=== PATIENT | female | born 2005 | race Caucasian/White ===

== ENCOUNTER 2024-07-21 17:15 | Emergency (ER) | payer BC, MEDICAID, SELFPAY ==
[2024-07-21 17:35] VITALS: BP 108/70; PULSE 97; RESP 16; TEMP 36.4; O2SAT 100
--- OUTSIDE RECORDS SUMMARY | 2024-07-21 17:54 | XMS_ITS | Patient Health Record ---
Author Organization [facility] Address [address] [facility] [place] [address] Care Team Providers Care Teaching Aide Name Role Phone Self, Self Unavailable Unavailable Sherly Quintanilla Unavailable [phone] Oswaldo Salinas Unavailable [phone] Allergies No Known Allergies Reason For Referral No Information Medications Medication SIG (Take, Route, Fr equency, Duration) Notes Start Date End Date Status Lubiprostone 24 MCG 1 capsule with food and water Orally Twice a day Active Ubrelvy 50 MG 1 tablet as needed, may take second dose at least 2 hours after first dose up to 4 tablets per day as needed Orally Once a day Active Aimovig 70 MG/ML as directed Subcutaneous Active MiraLax 17 GM/SCOOP 1 scoop mixed with 8 ounces of fluid Orally Once a day Active Dicyclomine HCl 10 MG 2 capsules Orally Three times a day Active Social History Tobacco Use: Social History Observation Description Date Details (start date - stop date) Never Smoker NA - NA Sexual History Question Answer Notes Had sex in the past 12 months (vaginal, oral, or anal)? No Have you ever had a Sexually transmitted disease ? No PRAPARE Question Answer Notes Date Completed/Updated: 04/07/2024 What is your current housing situation? I have h ousing Are you worried about losing your housing? No What is the highest level of school that you have finished? High school diploma or GED What is your current work situation? Unemployed and seeking work In the past year, have you o r any family members you live with been unable to get any of the following when it was really needed? Check all that apply I do not have problems meeting my needs Has lack of transportation k ept you from medical appointments, meetings, work or from getting things needed for daily living? No How often do you see or talk to people that you care about and feel close to? (For example: talking to friends on the phone, visiting friends or family, going to latter-day or club meetings) 1 or 2 times a week How stressed are you? Stress is when someone feels tense, nervous, anxious, or cant sleep at night because their mind is troubled A little bit In the past year have you sp ent more than 2 nights in a row in a fdc, fpc, group home center, or juvenile correctional facility? No Are you a refugee? No What country are you from? [place] Do you feel physically and e motionally safe where you currently live? Yes In the past year, have you b een afraid of your partner or ex-partner? No PRAPARE Score: 5 Tobacco Control (Standard) Question Answer Notes Tobacco use: Nonsmoker AUDIT-C (Standard) Question Answer Notes Did you have a drink contain ing alcohol in the past year? Yes How often did you have six o r more drinks on one occasion in the past year? Never (0 point) How many drinks did you have on a typical day when you were drinking in the past year? 1 or 2 drinks (0 point) How often did you have a dri nk containing alcohol in the past year? Monthly or less (1 point) Points 1 Interpretation Negative Encounters Encounter Location Date Provider Diagnosis Start [address] [place] [address] 04/07/2024 Sherly Quintanilla Assessments Encounter Date Diagnosis (ICD Code) Assessment Notes Treatment Notes Treatment Clinical Notes Section Notes 04/07/2024 completed intake and triage with the patient. set up dental appt. reviewed services and resources Plan Of Treatment No Information Insurance Providers Payer Name Payer Address Payer Phone Subscriber Number Group Number Insured Name Patient Relationship to Insured Coverage Start Date Coverage End Date [facility] Community Plan [address] [address] [place] [address] [id number] Veronica Aguilar Self - patient is the insured Medical (General) History Medical History History ICD Code lupus rheumatoid arthritis chronic migrains Surgical History Surgery Date(Month/Year) tonsillectomy and adenoidectomy
--- OUTSIDE RECORDS SUMMARY | 2024-07-21 17:54 | XMS_ITS ---
Author Organization [facility] Address [address] [facility] [place] [address] Care Team Providers Care Traffic Administrator Name Role Phone Self, Self Unavailable Unavailable Oswaldo Salinas Unavailable [phone] REASON FOR VISIT left vm Encounters Encounter Location Date Provider Diagnosis [facility] [address] [place] [address] 04/17/2024 Oswaldo Salinas Plan Of Treatment No Information Progress Notes * Kaylan MENARDOB:[birth year] (19 yo F)Acc No.[id number]:04/17/2024 Patient: Veronica AVILA Provider: Duane Salinas DMD :2005 A ge:19 Y S ex:Female Date:04/17/2024 Address:[id number] Subjective: * Chief Complaints: * 1 . Left vm. * Medical History: Objective: * Vitals: Assessment: Plan: * Treatment: * Billing Information: * Visit Code: * Procedure Codes: * Electronic signature of Sebas Salinas DMD on 07/21/2024 at 05:54 PM CDT Sign off status: Pending * Provider: Duane Salinas DMD Date: 0 04/17/2024 Generated for Bridget schwartz/Evelin/Nahid on: 0 07/21/2024 05:54 PM CDT
--- OUTSIDE RECORDS SUMMARY | 2024-07-21 17:55 | XMS_ITS ---
Author Organization [facility] Address [address] [facility] [place] [address] Care Team Providers Care Disc Inspector Name Role Phone Self, Self Unavailable Unavailable Oswaldo Salinas Unavailable [phone] REASON FOR VISIT Dental Encounters Encounter Location Date Provider Diagnosis Start [address] [place] [address] 03/31/2024 Oswaldo Salinas Plan Of Treatment No Information Progress Notes * Kaylan MENARDOB:[birth year] (19 yo F)Acc No.[id number]:03/31/2024 Patient: Veronica AVILA Provider: Duane Salinas DMD :2005 A ge:18 Y S ex:Female Date:03/31/2024 Address:[id number] Subjective: * Chief Complaints: * 1 . Dental. * Medical History: Objective: * Vitals: Assessment: Plan: * Treatment: * Billing Information: * Visit Code: * Procedure Codes: * Electronic signature of Sebas Salinas DMD on 07/21/2024 at 05:54 PM CDT Sign off status: Pending * Provider: Duane Salinas DMD Date: 06/01/2023 Generated for Bridget schwartz/Evelin/Yasmeenitting on: 07/21/2024 05:54 PM CDT
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
--- OUTSIDE RECORDS SUMMARY | 2024-07-21 17:56 | XMS_ITS | Encounter Summary ---
Author Organization [facility] Address [address] [place] [address] Care Team Providers Care Supervisor Extruding Department Name Role Phone Rosa Martin NP Primary Care Provider [phone] Lucius Sims MD Primary Care Provider + [phone] Riya Gill LPN Unavailable Unavailable Neil Simmons MD, Fannie Unavailable + [phone] Alexandria Dodson MD Primary Care Provider + [phone] Encounter Details Date Type Department Care Team (Late st Contact Info) Description 10/04/[address] [place] [address] Marce Joseph, HEAD WRESTLING COACH [address] [facility] [address] [place] [address] Social History Tobacco Use Types Packs/Day Years Used Date Smoking Tobacco: Never Smokeless Tobacco: Never Alcohol Use Standard Drinks/Week Comments No 0 (1 standard drink = 0.6 oz pur e alcohol) Comments No Sex and Gender Information Value Date Recorded Sex Assigned at Not on file Legal Sex Female 1:18 PM CDT Gender Identity Not on file Sexual Orientation Not on file documented as of this encounter Miscellaneous Notes * Telephone Encounter - Brandon Zuniga LPN - 10/04/2020 4:38 PM CDT ----- Message from Kirstin Miguel sent at 10/04/2020 4:30 PM CDT ----- Contact: PT's mom [phone] Type: Needs Medical Advice Who Called: PT's mom Symptoms (please be specific): irritable, PT stated she feels like something is wrong/ PT doesn't feel right, PT angry, agitated easily How long has patient had these symptoms: Weeks Pharmacy name and phone #: [facility] [phone] Would the patient rather a call back or a response via CanDiag? Callback Best Call Back Number: [phone] Additional Information: Needs call back CHIVO. PT was seen in office recently and PT was not heard or taking serious. Needs to call back Today, Per Mom Urgent documented in this encounter Plan of Treatment Not on file documented as of this encounter Visit Diagnoses Not on filedocumented in this encounter Additional Health Concerns Infection Onset Date Last Indicated Resolved Time Rule Out COVID-19 02/01/2021 02/01/2021 02/01/2021 10:59 AM CDT Rule Out COVID-19 08/29/2021 08/29/2021 08/29/2021 4:56 PM CDT Rule Out COVID-19 09/03/2021 09/03/2021 09/03/2021 11:34 PM CDT Rule Out COVID-19 03/10/2022 03/10/2022 03/10/2022 2:27 PM KNOCKER OFF Rule Out COVID-19 05/24/2022 05/24/2022 06/03/2022 8:58 PM KNOCKER OFF Rule Out COVID-19 01/05/2024 01/05/2024 01/05/2024 11:19 AM CDT documented as of this encounter Care Teams Supervisor Extruding Department Relationship Specialty Start Date End Date Rosa Martin NP [address] [place] [address] PCP - General Pediatrics 08/31/21 10/31/21 Lucius Sims MD [address] [place] [address] PCP - General Family Medicine 11/01/21 05/12/24 Alexandria Dodson MD [address] [place] [address] PCP - General Family Medicine 05/13/24 Riya Gill LPN Elevator Erector Helper 04/13/22 05/12/24 Fannie Trejo MD [address] [place] [address] Consulting Physician Obstetrics and Gynecology 01/21/24 documented as of this encounter
--- OUTSIDE RECORDS SUMMARY | 2024-07-21 17:56 | XMS_ITS | Clinical Summary ---
Author Organization [employer] and Its Subsidiaries and Affiliates Address [address] [place] [address] Care Team Providers Care Regional Refrigerated Cdl Truck Driver Name Role Phone Neil Simmons MD, Fannie Unavailable +- [phone] Alexandria Dodson MD Primary Care Provider [phone] Allergies No known active allergies Medications erenumab-aooe (AIMOVIG AUTOINJECTOR) 70 mg/mL autoinjectorIndi cations:Chronic migraine without aura, intractable, with status migrainosus Inject 1 mL (70 mg total) into the skin every 28 days. 2 each 5 4 Active ubrogepant (UBRELVY) 50 mg tabletIndication s:Chronic migraine without aura, intractable, with status migrainosus Take 1 tablet (50 mg total) by mouth as needed for Migraine. If symptoms persist or return, may repeat dose after 2 hours. Maximum: 200 mg per 24 hours 8 tablet 4 4 Active albuterol (PROVENTIL/GANGA GILLES HFA) 90 mcg/actuation inhaler SMARTSI Puff(s) By Mouth 4 Times Daily PRN 4 Active dicyclomine (BENTYL) 10 MG capsule Take 10 mg by mouth 2 (two) times daily as needed. 4 Active medroxyPROGESTER one (PROVERA) 10 MG tabletIndication s:Amenorrhea due to Depo Provera Take 1 tablet (10 mg total) by mouth once daily. 10 tablet 4 01/30/20 25 Active Active Problems Patient Care Coordination No te Formatting of this note is d ifferent from the original. Health Maintenance Due Topic Date Due Hepatitis C Screening Never done HIV Screening Never done Influenza Vaccine (1) Never done COVID-19 Vaccine ( season) Never done Pap Smear 2024 Problem Noted Date Diagnosed Date Graves disease 11/03/2022 Assessment & Plan (11/03/2022 9:06 AM CDT): She was unaware of diagnosis but it was confirmed with symptoms, suppressed TSH and positive TRAb and TSI Interestingly, TSH normalized without antithyroid medication Noted last normal TSH in 2021 Reports recent outside TSH was 'abnormal' She is having some symptoms which may be compatible with thyrotoxicosis Will recheck TFTs along with Graves antibodies and treat appropriately BMI 32.0-32.9,adult 11/03/2022 Assessment & Plan (11/03/2022 9:07 AM CDT): Check A1c Family history of diabetes mellitus in father Assessment & Plan (11/03/2022 9:07 AM CDT): Check A1c Thyroid nodule 11/03/2022 Assessment & Plan (11/03/2022 9:07 AM CDT): Sub centimeter nodule on L lobe Recheck US Postural dizziness with presyncope 08/12/2019 Triangular fibrocartilage co mplex injury, right, subsequent encounter 07/25/2018 Psychogenic nonepileptic seizure 07/23/2017 Chronic migraine without aur a, intractable, with status migrainosus 01/30/2017 Medication overuse headache 01/30/2017 Scoliosis (and kyphoscoliosis), idiopathic 10/03 Overview (01/07/2021): 2020 IMO Regulatory Import Back pain 10/04/2015 Resolved Problems Problem Noted Date Diagnosed Date Resolved Date Hyperventilation 08/12/2019 12/14/2021 Tachycardia 08/12/2019 12/14/2021 Right wrist sprain 07/01/2018 2 Encounters Date Type Department Care Team Description 05/13/2024 Patient Outreach [facility] [address] [place] [address] Lucius Sims MD Pop Health: Primary Care Yearly Visit, Pop [facility]: Preventative Screening from Last 3 Months Immunizations Immunization Administration Dates Next Due DTaP 05/02/2007, 5,2003,08/16,2003 HIB 2003,2003,2003 HPV 9-Valent 04/11/2019,07/15/2018,04/25/2018 Hepatitis A, Pediatric/Adole scent, 2 Dose 06/27/2017,01/12/2015 Hepatitis B, Pediatric/Adolescent 2003,2003,2003,04/11 HiB PRP-OMP 04/13/2004 IPV 05/02/2007, 4,2003,06/09 MMR 05/02/2007,04/13/2004 Meningococcal B, recombinant 10/10/2019,04/11/19 20 Meningococcal Conjugate (MCV 4O) 2 Vial (2mo-55yr) 05/25/2014 Meningococcal Conjugate (MCV4P) 04/11/2019 Pneumococcal Conjugate - 7 Valent 2004,04/13/2004,2003,06/09 Rabies - IM 10/03/2023,09/26/2023 Tdap 09/26/2023,05/25/2014 Varicella 05/02/2007,07/14/2004 Family History Medical History Relation Comments Diabetes Father Hyperlipidemia Father Hypertension Father Breast cancer Maternal Aunt Diabetes Maternal Grandmother Early Maternal Grandmother Blood clot in heart Hypertension Maternal Grandmother Pacemaker/defibrilator Maternal Uncle Hyperlipidemia Mother Hypertension Mother Colon cancer Other Diabetes Paternal Grandfather Diabetes Paternal Grandmother Congenital heart disease Neg Hx Ovarian cancer Neg Hx Relation Status Comments Father Alive Maternal Aunt Alive Maternal Grandmother Maternal Uncle Mother Alive Other Alive Paternal Grandfather Alive Paternal Grandmother Social History Tobacco Use Types Packs/Day Years Used Date Smoking Tobacco: Never Passive Smoke Exposure: Never Smokeless Tobacco: Never Tobacco Cessation:Counseling Given: Yes Comments:Mom vape Alcohol Use Standard Drinks/Week Comments Yes 0 (1 standard drink = 0.6 oz pur e alcohol) Occasionally Depression Answer Date Recorded PHQ-2 Total Score 0 05/24/2022 Comments No Sex and Gender Information Value Date Recorded Sex Assigned at Not on file Legal Sex Female 1:18 PM CDT Gender Identity Not on file Sexual Orientation Not on file Last Filed Vital Signs Vital Sign Reading Time Taken Comments Blood Pressure 102/68 01/30/2024 4:47 PM CDT Pulse 97 01/30/2024 4:47 PM CDT Temperature 36.6 C (97.9 F) 01/05/2024 11:00 AM CDT Respiratory Rate 18 01/05/2024 11:00 AM CDT Oxygen Saturation 99% 01/05/2024 11:00 AM CDT Inhaled Oxygen Concentration - - Weight 94.9 kg (209 lb 3.5 oz) 01/30/2024 4:47 P M CDT Height 170.2 cm (5' 7 ) 01/30/2024 4:47 PM CDT Body Mass Index 32.77 01/30/2024 4:47 PM CDT Plan of Treatment Health Maintenance Due Date Last Done Comments Hepatitis C Screening 2003 HIV Screening 2018 COVID-19 Vaccine ( season) 2023 Influenza Vaccine (#1) 2023 Pap Smear 2024 DTaP/Tdap/Td Vaccines (8 - Td or Tdap) 09/25/2033 09/26/2023, 05/25/2014, 05/02/2007, Additional history exists TETANUS VACCINE 09/25/2033 09/26/2023, 05/25/2014 RSV Vaccine (Age 60+ and patients) (1 - 1-dose 75+ series) 2078 Hepatitis B Vaccines Completed 2003, 2003, 2003, Additional history exists Hib Vaccines Completed 04/13/2004, 10/07, 2003, Additional history exists Pneumococcal Vaccines (Age 0-49) Aged Out 07/14/2004, 04/13/2004, 2003, Additional history exists No longer eligible based on patient's age to complete this topic IPV Vaccines Completed 05/02/2007, 10/07, 2003, Additional history exists MMR Vaccines Completed 05/02/2007, 04/13/2004 Varicella Vaccines Completed 05/02/2007, 07/14/2004 Hepatitis A Vaccines Completed 06/27/2017, 01/13/20 15 HPV Vaccines Completed 04/11/2019, 11/2018, 04/25/2018 Meningococcal Vaccine Completed 04/11/2019, 015 Lipid Panel Completed 09/16/2021, 04/25/2019 Procedures Procedure Name Priority Date/Time Associated Diagnosis Comments LIPID PANEL Routine 09/16/2021 10:10 AM CDT Low blood sugar reading from Last 3 Months or Most Recently Relevant to Health Maintenance Results * Lipid Panel (09/16/2021 10:10 AM CDT) Cholesterol 189 120 - 199 mg/dL [facility] Comment: The National Cholesterol Education Program (NCEP) has set the following guidelines (reference ranges) for Cholesterol: Optimal.....................<200 mg/dL Borderline High.............200-239 mg/dL High........................> or = 240 mg/dL Triglycerides 114 30 - 150 mg/dL [facility] Comment: The National Cholesterol Education Program (NCEP) has set the following guidelines (reference values) for triglycerides: Normal......................<150 mg/dL Borderline High.............150-199 mg/dL High........................200-499 mg/dL HDL 55 40 - 75 mg/dL [facility] Comment: The National Cholesterol Education Program (NCEP) has set the following guidelines (reference values) for HDL Cholesterol: Low...............<40 mg/dL Optimal...........>60 mg/dL LDL Cholesterol 111.2 63.0 - 159.0 mg/dL [facility] Comment: The National Cholesterol Education Program (NCEP) has set the following guidelines (reference values) for LDL Cholesterol: Optimal.......................<130 mg/dL Borderline High...............130-159 mg/dL High..........................160-189 mg/dL Very High.....................>190 mg/dL HDL/Cholesterol Ratio 29.1 20.0 - 50.0 % [facility] Total Cholesterol/HDL Ratio 3.4 2.0 - 5.0 [facility] Non-HDL Cholesterol 134 mg/dL [facility] Comment: Risk category and Non-HDL cholesterol goals: Coronary heart disease (CHD)or equivalent (10-year risk of CHD >20%): Non-HDL cholesterol goal <130 mg/dL Two or more CHD risk factors and 10-year risk of CHD <= 20%: Non-HDL cholesterol goal <160 mg/dL 0 to 1 CHD risk factor: Non-HDL cholesterol goal <190 mg/dL Blood specimen (specimen) Blood specimen / Unknown 09/16/2021 10:10 AM CDT 09/16/2021 10:14 AM CDT Rosa Martin NP LAB BLOOD ORDERABLES Final Res ult [facility] [address] [place] [address] from Last 3 Months or Most Recently Relevant to Health [place] [address] [place] [facility] [place]) [id number] ([place] [address] [facility] [place] [facility] [place] [address] [facility] [place] BCBS [facility] PPO Care Teams Regional Refrigerated Cdl Truck Driver Relationship Specialty Start Date End Date Alexandria Dodson MD [address] [place] [address] PCP - General Family Medicine 05/13/24 Fannie Trejo MD [address] [place] [address] [place] [address] Consulting Physician Obstetrics and Gynecology 01/21/24
--- OUTSIDE RECORDS SUMMARY | 2024-07-21 17:56 | XMS_ITS | Encounter Summary ---
Author Organization [employer] and Its Subsidiaries and Affiliates Address [address] [place] [address] Care Team Providers Care Instruments Sales Representative Name Role Phone Rosa Martin NP Primary Care Provider [phone] Lucius Sims MD Primary Care Provider +[phone] Riya Gill LPN Unavailable Unavailable Neil Simmons MD, Fannie Unavailable + [phone] Alexandria Dodson MD Primary Care Provider + [phone] Encounter Details Date Type Department Care Team (Late st Contact Info) Description 09/28/[address] [facility] [address] [place] [address] [place] [phone] Social History Tobacco Use Types Packs/Day Years Used Date Smoking Tobacco: Never Smokeless Tobacco: Never Alcohol Use Standard Drinks/Week Comments No 0 (1 standard drink = 0.6 oz pur e alcohol) Depression Answer Date Recorded PHQ-2 Total Score 0 08/29/2021 Comments Unknown Sex and Gender Information Value Date Recorded Sex Assigned at Not on file Legal Sex Female 1:18 PM CDT Gender Identity Not on file Sexual Orientation Not on file COVID-19 Exposure Response Date Recorded In the last 10 days, have yo u been in contact with someone who was confirmed or suspected to have Coronavirus/COVID-19? No / Unsure 09/16/2021 10:23 AM CDT documented as of this encounter Plan of Treatment Not on file documented as of this encounter Visit Diagnoses Not on filedocumented in this encounter Additional Health Concerns Infection Onset Date Last Indicated Resolved Time Rule Out COVID-19 03/10/2022 03/10/2022 03/10/2022 2:27 PM HAND COKE DRAWER Rule Out COVID-19 05/24/2022 05/24/2022 06/03/2022 8:58 PM HAND COKE DRAWER Rule Out COVID-19 01/05/2024 01/05/2024 01/05/2024 11:19 AM CDT documented as of this encounter Care Teams Instruments Sales Representative Relationship Specialty Start Date End Date Rosa Martin NP [address] [place] [address] PCP - General Pediatrics 08/31/21 10/31/21 Lucius Sims MD [address] [address] PCP - General Family Medicine 11/01/21 05/12/24 Alexandria Dodson MD [address] [place] [address] PCP - General Family Medicine 05/13/24 Riya Gill LPN Technical Writer And Editor 04/13/22 05/12/24 Fannie Trejo MD [address] [place] [address] Consulting Physician Obstetrics and Gynecology 01/21/24 documented as of this encounter
--- OUTSIDE RECORDS SUMMARY | 2024-07-21 17:56 | XMS_ITS | Encounter Summary ---
Author Organization [employer] and Its Subsidiaries and Affiliates Address [address] [place] [address] Care Team Providers Care Sanitary Plumber Name Role Phone Lucius Sims MD Primary Care Provider + [phone] Riya Gill LPN Unavailable Unavailable Neil Simmons MD, Fannie Unavailable + [phone] Alexandria Dodson MD Primary Care Provider + [phone] Encounter Details Date Type Department Care Team (Late st Contact Info) Description 02/23/2023 Pharmacy Visit [facility] [address] [place] [address] [address] [phone] Social History Tobacco Use Types Packs/Day Years Used Date Smoking Tobacco: Never Passive Smoke Exposure: Never Smokeless Tobacco: Never Comments:Mom vape Alcohol Use Standard Drinks/Week Comments No 0 (1 standard drink = 0.6 oz pur e alcohol) Depression Answer Date Recorded PHQ-2 Total Score 0 05/24/2022 Comments Unknown Sex and Gender Information Value Date Recorded Sex Assigned at Not on file Legal Sex Female 1:18 PM CDT Gender Identity Not on file Sexual Orientation Not on file documented as of this encounter Plan of Treatment Not on file documented as of this encounter Visit Diagnoses Not on filedocumented in this encounter Additional Health Concerns Infection Onset Date Last Indicated Resolved Time Rule Out COVID-19 01/05/2024 01/05/2024 01/05/2024 11:19 AM CDT documented as of this encounter Care Teams Sanitary Plumber Relationship Specialty Start Date End Date Lucius Sims MD [address] [address] PCP - General Family Medicine 11/01/21 05/12/24 Alexandria Dodson MD [address] [place], [place] [address] PCP - General Family Medicine 05/13/24 Riya Gill LPN Occ Therapy Asst 04/13/22 05/12/24 Fannie Trejo MD [address] [place] [address] [address] [address] Consulting Physician Obstetrics and Gynecology 01/21/24 documented as of this encounter
--- OUTSIDE RECORDS SUMMARY | 2024-07-21 17:56 | XMS_ITS | Encounter Summary ---
Author Organization [employer] and Its Subsidiaries and Affiliates Address [address] [place] [address] Care Team Providers Care Cage Maker Machine Name Role Phone Lucius Sims MD Primary Care Provider + [phone] Riya Gill LPN Unavailable Unavailable Neil Simmons MD, Fannie Unavailable + [phone] Alexandria Dodson MD Primary Care Provider + [phone] Encounter Details Date Type Department Care Team (Late st Contact Info) Description 10/24/2022 Pharmacy Visit [facility] [address] [place] [address] [address] [phone] Social History Tobacco Use [...] documented as of this encounter Care Teams Cage Maker Machine Relationship Specialty Start Date End Date Lucius Sims MD [address] [address] PCP - General Family Medicine 11/01/21 05/12/24 Alexandria Dodson MD [address] [place], [place] [address] PCP - General Family Medicine 05/13/24 Riya Gill LPN Power Systems Engineer 04/13/22 05/12/24 Fannie Trejo MD [address] [place] [address] [address] Consulting Physician Obstetrics and Gynecology 01/21/24 documented as of this encounter
--- OUTSIDE RECORDS SUMMARY | 2024-07-21 17:56 | XMS_ITS | Encounter Summary ---
Author Organization [employer] and Its Subsidiaries and Affiliates Address [address] [place] [address] Care Team Providers Care Assistant Press Operator Offset Name Role Phone Lucius Sims MD Primary Care Provider + [phone] Riya Gill LPN Unavailable Unavailable Neil Simmons MD, Fannie Unavailable + [phone] Alexandria Dodson MD Primary Care Provider + [phone] Encounter Details Date Type Department Care Team (Late st Contact Info) Description 10/20/2022 Pharmacy Visit [facility] [address] [place] [address] [address] [phone] Social History Tobacco Use Types Packs/Day Years [...] documented as of this encounter Care Teams Assistant Press Operator Offset Relationship Specialty Start Date End Date Lucius Sims MD [address] [address] PCP - General Family Medicine 11/01/21 05/12/24 Alexandria Dodson MD [address] [place], [place] [address] PCP - General Family Medicine 05/13/24 Riya Gill LPN Veneer Marker 04/13/22 05/12/24 Fannie Trejo MD [address] [place] [address] [address] Consulting Physician Obstetrics and Gynecology 01/21/24 documented as of this encounter
--- OUTSIDE RECORDS SUMMARY | 2024-07-21 17:56 | XMS_ITS | Encounter Summary ---
Author Organization [employer] and Its Subsidiaries and Affiliates Address [address] [place] [address] Care Team Providers Care Asic Verification Engineer Name Role Phone Lucius Sims MD Primary Care Provider + [phone] Riya Gill LPN Unavailable Unavailable Neil Simmons MD, Fannie Unavailable + [phone] Alexandria Dodson MD Primary Care Provider + [phone] Encounter Details Date Type Department Care Team (Late st Contact Info) Description 12/14/2021 Pharmacy Visit [facility] [address] [place] [address] [address] [phone] Social History Tobacco Use Types Packs/Day Years Used Date Smoking Tobacco: Never Smokeless Tobacco: Never Alcohol Use Standard Drinks/Week Comments No 0 (1 standard drink = 0.6 oz pur e alcohol) Depression Answer Date Recorded PHQ-2 Total Score 0 08/29/2021 Comments No Sex and Gender Information Value [...] Out COVID-19 03/10/2022 03/10/2022 03/10/2022 2:27 PM MOLD BLOWER Rule Out COVID-19 05/24/2022 05/24/2022 06/03/2022 8:58 PM MOLD BLOWER Rule Out COVID-19 01/05/2024 01/05/2024 01/05/2024 11:19 AM CDT documented as of this encounter Care Teams Asic Verification Engineer Relationship Specialty Start Date End Date Lucius Sims MD [address] [address] PCP - General Family Medicine 11/01/21 05/12/24 Alexandria Dodson MD [address] [facility] [address] PCP - General Family Medicine 05/13/24 Riya Gill LPN Advertising Executive 04/13/22 05/12/24 Fannie Trejo MD [address] [place] [address] [address] Consulting Physician Obstetrics and Gynecology 01/21/24 documented as of this encounter
--- OUTSIDE RECORDS SUMMARY | 2024-07-21 17:56 | XMS_ITS | Encounter Summary ---
Author Organization [employer] and Its Subsidiaries and Affiliates Address [address] [place] [address] Care Team Providers Care Fire Sprinkler Service Technician Name Role Phone Lucius Sims MD Primary Care Provider + [phone] Riya Gill LPN Unavailable Unavailable Neil Simmons MD, Fannie Unavailable + [phone] Alexandria Dodson MD Primary Care Provider + [phone] Encounter Details Date Type Department Care Team (Late st Contact Info) Description 11/06/2022 Pharmacy Visit [facility] [address] [place] [address] [address] [phone] Social History Tobacco Use Types Packs/Day Years [...] documented as of this encounter Care Teams Fire Sprinkler Service Technician Relationship Specialty Start Date End Date Lucius Sims MD [address] [address] PCP - General Family Medicine 11/01/21 05/12/24 Alexandria Dodson MD [address] [place], [place] [address] PCP - General Family Medicine 05/13/24 Riya Gill LPN Client Solutions Director 04/13/22 05/12/24 Fannie Trejo MD [address] [place] [address] [address] Consulting Physician Obstetrics and Gynecology 01/21/24 documented as of this encounter
--- OUTSIDE RECORDS SUMMARY | 2024-07-21 17:56 | XMS_ITS | Encounter Summary ---
Author Organization [employer] and Its Subsidiaries and Affiliates Address [address] [place] [address] Care Team Providers Care Internal Revenue Service Agent Name Role Phone Rosa Martin NP Primary Care Provider [phone] Lucius Sims MD Primary Care Provider [phone] Riya Gill LPN Unavailable Unavailable Neil Simmons MD, Fannie Unavailable + [phone] Alexandria Dodson MD Primary Care Provider + [phone] Encounter Details Date Type Department Care Team (Late st Contact Info) Description 05/19/[address] [facility] [address] [place] [address] [address] [phone] Social History Tobacco Use Types Packs/Day Years [...] Out COVID-19 03/10/2022 03/10/2022 03/10/2022 2:27 PM MULTIMEDIA AUTHOR Rule Out COVID-19 05/24/2022 05/24/2022 06/03/2022 8:58 PM MULTIMEDIA AUTHOR Rule Out COVID-19 01/05/2024 01/05/2024 01/05/2024 11:19 AM CDT documented as of this encounter Care Teams Internal Revenue Service Agent Relationship Specialty Start Date End Date Rosa Martin NP [address] [place] [address] PCP - General Pediatrics 08/31/21 10/31/21 Lucius Sims MD [address] [facility] [place] [address] PCP - General Family Medicine 11/01/21 05/12/24 Alexandria Dodson MD [address] [place] [address] PCP - General Family Medicine 05/13/24 Riya Gill LPN Automatic Operator 04/13/22 05/12/24 Fannie Trejo MD [address] [facility] [place] [place] [address] Consulting Physician Obstetrics and Gynecology 01/21/24 documented as of this encounter
--- OUTSIDE RECORDS SUMMARY | 2024-07-21 17:56 | XMS_ITS | Encounter Summary ---
Author Organization [employer] and Its Subsidiaries and Affiliates Address [address] [place] [address] Care Team Providers Care Cooker Syrup Name Role Phone Lucius Sims MD Primary Care Provider + [phone] Riya Gill LPN Unavailable Unavailable Neil Simmons MD, Fannie Unavailable + [phone] Alexandria Dodson MD Primary Care Provider + [phone] Encounter Details Date Type Department Care Team (Late st Contact Info) Description 11/23/2021 Pharmacy Visit [facility] [address] [place] [address] [place] [phone] Social History Tobacco Use Types Packs/Day [...] suspected to have Coronavirus/COVID-19? No / Unsure 11/01/2021 3:26 PM CDT documented as of this encounter Plan of Treatment Not on file documented as of this encounter Visit Diagnoses Not on filedocumented in this encounter Additional Health Concerns Infection Onset Date Last Indicated Resolved Time Rule Out COVID-19 03/10/2022 03/10/2022 03/10/2022 2:27 PM NCR OPERATOR Rule Out COVID-19 05/24/2022 05/24/2022 06/03/2022 8:58 PM NCR OPERATOR Rule Out COVID-19 01/05/2024 01/05/2024 01/05/2024 11:19 AM CDT documented as of this encounter Care Teams Cooker Syrup Relationship Specialty Start Date End Date Lucius Sims MD [address] [address] PCP - General Family Medicine 11/01/21 05/12/24 Alexandria Dodson MD [address] [facility] [place] [address] PCP - General Family Medicine 05/13/24 Riya Gill LPN Private Branch Exchange Service Adviser 04/13/22 05/12/24 Fannie Trejo MD [address] [place] [address] [address] Consulting Physician Obstetrics and Gynecology 01/21/24 documented as of this encounter
--- OUTSIDE RECORDS SUMMARY | 2024-07-21 17:56 | XMS_ITS | Encounter Summary ---
Author Organization [employer] and Its Subsidiaries and Affiliates Address [address] [place] [address] Care Team Providers Care Link Cutter Name Role Phone Lucius Sims MD Primary Care Provider + [phone] Riya Gill LPN Unavailable Unavailable Neil Simmons MD, Fannie Unavailable + [phone] Alexandria Dodson MD Primary Care Provider + [phone] Encounter Details Date Type Department Care Team (Late st Contact Info) Description 12/02/2021 Pharmacy Visit [facility] [address] [place] [address] [address] [phone] Social History Tobacco Use [...] Out COVID-19 03/10/2022 03/10/2022 03/10/2022 2:27 PM DEICER REPAIRER PNEUMATIC Rule Out COVID-19 05/24/2022 05/24/2022 06/03/2022 8:58 PM DEICER REPAIRER PNEUMATIC Rule Out COVID-19 01/05/2024 01/05/2024 01/05/2024 11:19 AM CDT documented as of this encounter Care Teams Link Cutter Relationship Specialty Start Date End Date Lucius Sims MD [address] [address] PCP - General Family Medicine 11/01/21 05/12/24 Alexandria Dodson MD [address] [facility] [place] [address] PCP - General Family Medicine 05/13/24 Riya Gill LPN Media Buyer 04/13/22 05/12/24 Fannie Trejo MD [address] [place] [address] [address] Consulting Physician Obstetrics and Gynecology 01/21/24 documented as of this encounter
--- OUTSIDE RECORDS SUMMARY | 2024-07-21 17:56 | XMS_ITS | Encounter Summary ---
Author Organization [employer] and Its Subsidiaries and Affiliates Address [address] [place] [address] Care Team Providers Care Cnc Machinist 2Nd Shift Name Role Phone Lucius Sims MD Primary Care Provider + [phone] Riya Gill LPN Unavailable Unavailable Neil Simmons MD, Fannie Unavailable + [phone] Alexandria Dodson MD Primary Care Provider + [phone] Encounter Details Date Type Department Care Team (Late st Contact Info) Description 10/31/2022 Pharmacy Visit [facility] [address] [place] [address] [address]VE[address]te [phone] Social History Tobacco Use Types Packs/Day Years [...] documented as of this encounter Care Teams Cnc Machinist 2Nd Shift Relationship Specialty Start Date End Date Lucius Sims MD [address] [address] PCP - General Family Medicine 11/01/21 05/12/24 Alexandria Dodson MD [address] [place], [place] [address] PCP - General Family Medicine 05/13/24 Riya Gill LPN Supervisor Wrapping Room 04/13/22 05/12/24 Fannie Trejo MD [address] [place] [address] [address] Consulting Physician Obstetrics and Gynecology 01/21/24 documented as of this encounter
--- OUTSIDE RECORDS SUMMARY | 2024-07-21 17:56 | XMS_ITS | Encounter Summary ---
Author Organization [employer] and Its Subsidiaries and Affiliates Address [address] [place] [address] Care Team Providers Care Sailor Name Role Phone Lucius Sims MD Primary Care Provider + [phone] Riya Gill LPN Unavailable Unavailable Neil Simmons MD, Fannie Unavailable + [phone] Alexandria Dodson MD Primary Care Provider + [phone] Encounter Details Date Type Department Care Team (Late st Contact Info) Description 03/03/2022 Pharmacy Visit [facility] [address] [place] [address] JUVENAL Navarrete [phone] Social History Tobacco Use [...] Out COVID-19 03/10/2022 03/10/2022 03/10/2022 2:27 PM WARP BLEACHING VAT TENDER Rule Out COVID-19 05/24/2022 05/24/2022 06/03/2022 8:58 PM WARP BLEACHING VAT TENDER Rule Out COVID-19 01/05/2024 01/05/2024 01/05/2024 11:19 AM CDT documented as of this encounter Care Teams Sailor Relationship Specialty Start Date End Date Lucius Sims MD [address] [address] PCP - General Family Medicine 11/01/21 05/12/24 Alexandria Dodson MD [address] [facility] [place] [address] PCP - General Family Medicine 05/13/24 Riya Gill LPN Tube Mounter 04/13/22 05/12/24 Fannie Trejo MD [address] [place] [address] [address] Consulting Physician Obstetrics and Gynecology 01/21/24 documented as of this encounter
--- OUTSIDE RECORDS SUMMARY | 2024-07-21 17:56 | XMS_ITS | Encounter Summary ---
Author Organization [employer] and Its Subsidiaries and Affiliates Address [address] [place] [address] Care Team Providers Care Fermentation Manager Name Role Phone Lucius Sims MD Primary Care Provider + [phone] Riya Gill LPN Unavailable Unavailable Neil Simmons MD, Fannie Unavailable + [phone] Alexandria Dodson MD Primary Care Provider + [phone] Encounter Details Date Type Department Care Team (Late st Contact Info) Description 07/25/2022 Pharmacy Visit [facility] [address] [place] [address] JUVENAL Navarrete [phone] Social History Tobacco Use Types Packs/Day Years [...] documented as of this encounter Care Teams Fermentation Manager Relationship Specialty Start Date End Date Lucius Sims MD [address] [address] PCP - General Family Medicine 11/01/21 05/12/24 Alexandria Dodson MD [address] [place], [place] [address] PCP - General Family Medicine 05/13/24 Riya Gill LPN Pc Tech 04/13/22 05/12/24 Fannie Trejo MD [address] [place] [address] [address] Consulting Physician Obstetrics and Gynecology 01/21/24 documented as of this encounter
--- OUTSIDE RECORDS SUMMARY | 2024-07-21 17:56 | XMS_ITS | Encounter Summary ---
Author Organization [employer] and Its Subsidiaries and Affiliates Address [address] [place] [address] Care Team Providers Care Front Office Java Developer Name Role Phone Lucius Sims MD Primary Care Provider + [phone] Riya Gill LPN Unavailable Unavailable Neil Simmons MD, Fannie Unavailable + [phone] Alexandria Dodson MD Primary Care Provider + [phone] Encounter Details Date Type Department Care Team (Late st Contact Info) Description 02/12/2023 Pharmacy Visit [facility] [address] [place] [address] JUVENAL Navarrete [phone] Social History Tobacco Use [...] documented as of this encounter Care Teams Front Office Java Developer Relationship Specialty Start Date End Date Lucius Sims MD [address] [address] PCP - General Family Medicine 11/01/21 05/12/24 Alexandria Dodson MD [address] [place], [place] [address] PCP - General Family Medicine 05/13/24 Riya Gill LPN Cook Italian Style Food 04/13/22 05/12/24 Fannie Trejo MD [address] [place] [address] [address] Consulting Physician Obstetrics and Gynecology 01/21/24 documented as of this encounter
--- OUTSIDE RECORDS SUMMARY | 2024-07-21 17:56 | XMS_ITS | Encounter Summary ---
Author Organization [employer] and Its Subsidiaries and Affiliates Address [address] [place] [address] Care Team Providers Care Water Registrar Name Role Phone Lucius Sims MD Primary Care Provider + [phone] Riya Gill LPN Unavailable Unavailable Neil Simmons MD, Fannie Unavailable + [phone] Alexandria Dodson MD Primary Care Provider + [phone] Encounter Details Date Type Department Care Team (Late st Contact Info) Description 11/24/2021 Pharmacy Visit [facility] [address] [place] [address] [place] [phone] Social History Tobacco Use Types Packs/Day [...] Out COVID-19 03/10/2022 03/10/2022 03/10/2022 2:27 PM LOGISTICS ACCOUNT MANAGER Rule Out COVID-19 05/24/2022 05/24/2022 06/03/2022 8:58 PM LOGISTICS ACCOUNT MANAGER Rule Out COVID-19 01/05/2024 01/05/2024 01/05/2024 11:19 AM CDT documented as of this encounter Care Teams Water Registrar Relationship Specialty Start Date End Date Lucius Sims MD [address] [address] PCP - General Family Medicine 11/01/21 05/12/24 Alexandria Dodson MD [address] [facility] [address] PCP - General Family Medicine 05/13/24 Riya Gill LPN Dishwashing Machine Repairer 04/13/22 05/12/24 Fannie Trejo MD [address] [place] [address] [address] Consulting Physician Obstetrics and Gynecology 01/21/24 documented as of this encounter
--- OUTSIDE RECORDS SUMMARY | 2024-07-21 17:56 | XMS_ITS | Encounter Summary ---
Author Organization [employer] and Its Subsidiaries and Affiliates Address [address] [place] [address] Care Team Providers Care Audit Partner Name Role Phone Lucius Sims MD Primary Care Provider + [phone] Riya Gill LPN Unavailable Unavailable Neil Simmons MD, Fannie Unavailable + [phone] Alexandria Dodson MD Primary Care Provider + [phone] Encounter Details Date Type Department Care Team (Late st Contact Info) Description 02/28/2023 Pharmacy Visit [facility] [address] [place] [address] JUVENAL Navarrete [phone] Social History Tobacco Use [...] documented as of this encounter Care Teams Audit Partner Relationship Specialty Start Date End Date Lucius Sims MD [address] [address] PCP - General Family Medicine 11/01/21 05/12/24 Alexandria Dodson MD [address] [place], [place] [address] PCP - General Family Medicine 05/13/24 Riya Gill LPN Die Cutter Operator 04/13/22 05/12/24 Fannie Trejo MD [address] [place] [address] [address] Consulting Physician Obstetrics and Gynecology 01/21/24 documented as of this encounter
--- OUTSIDE RECORDS SUMMARY | 2024-07-21 17:56 | XMS_ITS | Encounter Summary ---
Author Organization [employer] and Its Subsidiaries and Affiliates Address [address] [place] [address] Care Team Providers Care Rubber Off Name Role Phone Lucius Sims MD Primary Care Provider + [phone] Riya Gill LPN Unavailable Unavailable Neil Simmons MD, Fannie Unavailable + [phone] Alexandria Dodson MD Primary Care Provider + [phone] Encounter Details Date Type Department Care Team (Late st Contact Info) Description 08/04/2022 Pharmacy Visit [facility] [address] [place] [address] JUVENAL Navarrete [phone] Social History Tobacco Use [...] documented as of this encounter Care Teams Rubber Off Relationship Specialty Start Date End Date Lucius Sims MD [address] [address] PCP - General Family Medicine 11/01/21 05/12/24 Alexandria Dodson MD [address] [place], [place] [address] PCP - General Family Medicine 05/13/24 Riya Gill LPN Billing Clinician 04/13/22 05/12/24 Fannie Trejo MD [address] [place] [address] [address] Consulting Physician Obstetrics and Gynecology 01/21/24 documented as of this encounter
--- OUTSIDE RECORDS SUMMARY | 2024-07-21 17:56 | XMS_ITS | Encounter Summary ---
Author Organization [employer] and Its Subsidiaries and Affiliates Address [address] [place] [address] Care Team Providers Care Propulsion Systems Engineer Name Role Phone Hernando Womack MD Primary Care Provider Rosa Martin NP Primary Care Provider [phone] Lucius Sims MD Primary Care Provider [phone] Riya Gill LPN Unavailable Unavailable Neil Simmons MD, Fannie Unavailable + [phone] Alexandria Dodson MD Primary Care Provider +- [phone] Encounter Details Date Type Department Care Team (Late st Contact Info) Description 07/25/2018 Procedure Pass [facility] [address] [place] [address] Social History Tobacco Use Types Packs/Day Years Used Date Smoking Tobacco: Never Alcohol Use Standard Drinks/Week Comments [...] Out COVID-19 03/10/2022 03/10/2022 03/10/2022 2:27 PM EDUCATION COUNSELOR Rule Out COVID-19 05/24/2022 05/24/2022 06/03/2022 8:58 PM EDUCATION COUNSELOR Rule Out COVID-19 01/05/2024 01/05/2024 01/05/2024 11:19 AM CDT documented as of this encounter Care Teams Propulsion Systems Engineer Relationship Specialty Start Date End Date Hernando Womack MD [address] [place] [address] PCP - General Pediatrics 09/30/15 04/23/19 Rosa Martin BARREL RIFLER HOOK [address] [place] [address] PCP - General Pediatrics 08/31/21 10/31/21 Lucius Sims MD [address] [place] [address] PCP - General Family Medicine 11/01/21 05/12/24 Alexandria Dodson MD [address] [facility] [place] [address] PCP - General Family Medicine 05/13/24 Riya Gill LPN Bench Worker Binding 04/13/22 05/12/24 [address]jo MD [address] [facility] [place] [address] Consulting Physician Obstetrics and Gynecology 01/21/24 documented as of this encounter
--- OUTSIDE RECORDS SUMMARY | 2024-07-21 17:56 | XMS_ITS | Encounter Summary ---
Author Organization [employer] and Its Subsidiaries and Affiliates Address [address] [place] [address] Care Team Providers Care Welfare Administrator Name Role Phone Lucius Sims MD Primary Care Provider + [phone] Riya Gill LPN Unavailable Unavailable Neil Simmons MD, Fannie Unavailable + [phone] Alexandria Dodson MD Primary Care Provider + [phone] Encounter Details Date Type Department Care Team (Late st Contact Info) Description 11/22/2021 Pharmacy Visit [facility] [address] [place] [address] [place] [phone] Social History Tobacco Use Types Packs/Day [...] Out COVID-19 03/10/2022 03/10/2022 03/10/2022 2:27 PM FENCE MANUFACTURE SUPERVISOR Rule Out COVID-19 05/24/2022 05/24/2022 06/03/2022 8:58 PM FENCE MANUFACTURE SUPERVISOR Rule Out COVID-19 01/05/2024 01/05/2024 01/05/2024 11:19 AM CDT documented as of this encounter Care Teams Welfare Administrator Relationship Specialty Start Date End Date Lucius Sims MD [address] [address] PCP - General Family Medicine 11/01/21 05/12/24 Alexandria Dodson MD [address] [place] [address] PCP - General Family Medicine 05/13/24 Riya Gill LPN Information Technology Audit Manager 04/13/22 05/12/24 Fannie Trejo MD [address] [place] [address] [address] Consulting Physician Obstetrics and Gynecology 01/21/24 documented as of this encounter
--- OUTSIDE RECORDS SUMMARY | 2024-07-21 17:56 | XMS_ITS | Encounter Summary ---
Author Organization [employer] and Its Subsidiaries and Affiliates Address [address] [place] [address] Care Team Providers Care Residential Monitor Name Role Phone Rosa Martin NP Primary Care Provider [phone] Lucius Sims MD Primary Care Provider [phone] Riya Gill LPN Unavailable Unavailable Neil Simmons MD, Fannie Unavailable + [phone] Alexandria Dodson MD Primary Care Provider + [phone] Encounter Details Date Type Department Care Team (Late st Contact Info) Description 02/02/[address] [place] [address] Marce Joseph, INJECTION MOLD TOOLING TECHNICIAN [address] [facility] [address] [place] [address] Social History Tobacco Use Types [...] Telephone Encounter - Brandon Zuniga LPN - 02/02/2021 4:34 PM CDT ----- Message from Les Ryan sent at 02/02/2021 11:54 AM CDT ----- Contact: Kieran @ [phone] Mom stated when patient was seen on yesterday she was told she has a virus. Mom took patient to a different doctor and was told patient has bronchitis and wanted to inform. documented in this encounter Plan of Treatment Not on file documented as of this encounter Visit Diagnoses Not on filedocumented in this encounter Additional Health Concerns Infection Onset Date Last Indicated Resolved Time Rule Out COVID-19 08/29/2021 08/29/2021 08/29/2021 4:56 PM CDT Rule Out COVID-19 09/03/2021 09/03/2021 09/03/2021 11:34 PM CDT Rule Out COVID-19 03/10/2022 03/10/2022 03/10/2022 2:27 PM SENIOR SALES ENGINEER Rule Out COVID-19 05/24/2022 05/24/2022 06/03/2022 8:58 PM SENIOR SALES ENGINEER Rule Out COVID-19 01/05/2024 01/05/2024 01/05/2024 11:19 AM CDT documented as of this encounter Care Teams Residential Monitor Relationship Specialty Start Date End Date Rosa Martin NP [facility] [place] [address] PCP - General Pediatrics 08/31/21 10/31/21 Lucius Sims MD [address] [place] [address] PCP - General Family Medicine 11/01/21 05/12/24 [place] [address] [place] [address] PCP - General Family Medicine 05/13/24 Riya Gill LPN Separating Machine Operator 04/13/22 05/12/24 Fannie Trejo MD [address] [place] [address] [address] [address] Consulting Physician Obstetrics and Gynecology 01/21/24 documented as of this encounter
--- OUTSIDE RECORDS SUMMARY | 2024-07-21 17:56 | XMS_ITS | Encounter Summary ---
Author Organization [employer] and Its Subsidiaries and Affiliates Address [address] [place] [address] Care Team Providers Care Leadership Development Instructor Name Role Phone Rosa Martin NP Primary Care Provider [phone] Lucius Sims MD Primary Care Provider +[phone] Riya Gill LPN Unavailable Unavailable Neil Simmons MD, Fannie Unavailable + [phone] Alexandria Dodson MD Primary Care Provider + [phone] Encounter Details Date Type Department Care Team (Late st Contact Info) Description 09/16/[address] [facility] [address] [place] [address] [place] [phone] Social History Tobacco Use Types Packs/Day Years [...] Out COVID-19 03/10/2022 03/10/2022 03/10/2022 2:27 PM WILDLIFE MANAGEMENT PROFESSOR Rule Out COVID-19 05/24/2022 05/24/2022 06/03/2022 8:58 PM WILDLIFE MANAGEMENT PROFESSOR Rule Out COVID-19 01/05/2024 01/05/2024 01/05/2024 11:19 AM CDT documented as of this encounter Care Teams Leadership Development Instructor Relationship Specialty Start Date End Date Rosa Martin NP [address] [place] [address] PCP - General Pediatrics 08/31/21 10/31/21 Lucius Sims MD [address] [address] PCP - General Family Medicine 11/01/21 05/12/24 Alexandria Dodson MD [address] [place] [address] PCP - General Family Medicine 05/13/24 Riya Gill LPN Airdrop Systems Technician 04/13/22 05/12/24 Fannie Trejo MD [address] [place] [address] [address] Consulting Physician Obstetrics and Gynecology 01/21/24 documented as of this encounter
--- OUTSIDE RECORDS SUMMARY | 2024-07-21 17:56 | XMS_ITS | Encounter Summary ---
Author Organization [employer] and Its Subsidiaries and Affiliates Address [address] [place] [address] Care Team Providers Care Carton Maker Name Role Phone Lucius Sims MD Primary Care Provider + [phone] Riya Gill LPN Unavailable Unavailable Neil Simmons MD, Fannie Unavailable + [phone] Alexandria Dodson MD Primary Care Provider + [phone] Encounter Details Date Type Department Care Team (Late st Contact Info) Description 07/06/2022 Pharmacy Visit [facility] [address] [place] [address] JUVENAL Navarrete [phone] Social History Tobacco Use Types Packs/Day Years [...] documented as of this encounter Care Teams Carton Maker Relationship Specialty Start Date End Date Lucius Sims MD [address] [address] PCP - General Family Medicine 11/01/21 05/12/24 Alexandria Dodson MD [address] [place], [place] [address] PCP - General Family Medicine 05/13/24 Riya Gill LPN Student Counselor 04/13/22 05/12/24 Fannie Trejo MD [address] [place] [address] Consulting Physician Obstetrics and Gynecology 01/21/24 documented as of this encounter
--- OUTSIDE RECORDS SUMMARY | 2024-07-21 17:56 | XMS_ITS | Encounter Summary ---
Author Organization [employer] and Its Subsidiaries and Affiliates Address [address] [place] [address] Care Team Providers Care Cost Estimator Name Role Phone Lucius Sims MD Primary Care Provider + [phone] Riya Gill LPN Unavailable Unavailable Neil Simmons MD, Fannie Unavailable + [phone] Alexandria Dodson MD Primary Care Provider + [phone] Encounter Details Date Type Department Care Team (Late st Contact Info) Description 10/30/2022 Pharmacy Visit [facility] [address] [place] [address] JUVENAL Navarrete [phone] Social History Tobacco Use [...] documented as of this encounter Care Teams Cost Estimator Relationship Specialty Start Date End Date Lucius Sims MD [address] [address] PCP - General Family Medicine 11/01/21 05/12/24 Alexandria Dodson MD [address] [place], [place] [address] PCP - General Family Medicine 05/13/24 Riya Gill LPN Crown And Bridge Technician 04/13/22 05/12/24 Fannie Trejo MD [address] [place] [address] Consulting Physician Obstetrics and Gynecology 01/21/24 documented as of this encounter
--- OUTSIDE RECORDS SUMMARY | 2024-07-21 17:56 | XMS_ITS | Encounter Summary ---
Author Organization [employer] and Its Subsidiaries and Affiliates Address [address] [place] [address] Care Team Providers Care Environmental Systems Coordinator Name Role Phone Rosa Martin NP Primary Care Provider [phone] Lucius Sims MD Primary Care Provider [phone] Riya Gill LPN Unavailable Unavailable Neil Simmons MD, Fannie Unavailable + [phone] Alexandria Dodson MD Primary Care Provider + [phone] Encounter Details Date Type Department Care Team (Late st Contact Info) Description 11/04/[address] [place] [address] Marce Joseph, PLANT ENGINEER 9[address] [facility] [address] [place] [address] Social History Tobacco Use Types [...] encounter Miscellaneous Notes * Telephone Encounter - Tiffanie Goodson LPN - 11/04/2020 11:15 AM CDT Mom states that pt was seen by a doctor yesterday close to home, Dr Bran. Pt had a headache for 2days, almost throwing up, gagging.Gave her a shot for pain - ajovy for headaches. Gave a Rx-nurtec for when she feels migraine coming on as well as popiramate 50mg 2x daily If headaches do not improve in 2 weeks then needs to come back in. Mom is concerned about the costsof medication with Dr Bran. He recommended seeing PCP since you take private and medicaid insurance. Informed mom that I would check with you to if you were comfortable doing this. Informed mom youwere out this week and would return next week. * Telephone Encounter - Tiffanie Goodson LPN - 11/04/2020 11:14 AM CDT ----- Message from Selena Barnhart sent at 11/04/2020 10:52 AM CDT ----- Contact: Mom [phone] Would like to get medical advice. Comments: Calling to speak to the nurse regarding the pt visit with a different provider on yesterday. Would like to update provider. documented in this encounter Plan of Treatment [...] Out COVID-19 03/10/2022 03/10/2022 03/10/2022 2:27 PM METAL POLISHER AND BUFFER APPRENTICE Rule Out COVID-19 05/24/2022 05/24/202206/0306/03/2022 8:58 PM METAL POLISHER AND BUFFER APPRENTICE Rule Out COVID-19 01/05/2024 01/05/2024 01/05/2024 11:19 AM CDT documented as of this encounter Care Teams Environmental Systems Coordinator Relationship Specialty Start Date End Date Rosa Martin, PLANT ENGINEER [address] [place] [address] PCP - General Pediatrics 08/31/21 10/31/21 Lucius Sims MD [address] [address] PCP - General Family Medicine 11/01/21 05/12/24 Alexandria Dodson MD [address] [place] [address] PCP - General Family Medicine 05/13/24 Riya Gill LPN Fruit And Vegetable Parer 04/13/22 05/12/24 Fannie Trejo MD [address] [place] [address] [address] Consulting Physician Obstetrics and Gynecology 01/21/24 documented as of this encounter
--- OUTSIDE RECORDS SUMMARY | 2024-07-21 17:56 | XMS_ITS | Encounter Summary ---
Author Organization [employer] and Its Subsidiaries and Affiliates Address [address] [place] [address] Care Team Providers Care Closing Coordinator Name Role Phone Lucius Sims MD Primary Care Provider + [phone] Riya Gill LPN Unavailable Unavailable Neil Simmons MD, Fannie Unavailable + [phone] Alexandria Dodson MD Primary Care Provider + [phone] Encounter Details Date Type Department Care Team (Late st Contact Info) Description 11/03/2022 Procedure Pass [facility] [address] [place] [phone] Social History Tobacco Use Types Packs/Day Years [...] documented as of this encounter Care Teams Closing Coordinator Relationship Specialty Start Date End Date Lucius Sims MD [address] [address] PCP - General Family Medicine 11/01/21 05/12/24 Alexandria Dodson MD [address] [place], [place] [address] PCP - General Family Medicine 05/13/24 Riya Gill LPN Radiotelegraph Operator Servicer 04/13/22 05/12/24 Fannie Trejo MD [address] [place] [address] [address] Consulting Physician Obstetrics and Gynecology 01/21/24 documented as of this encounter
--- OUTSIDE RECORDS SUMMARY | 2024-07-21 17:56 | XMS_ITS | Encounter Summary ---
Author Organization [employer] and Its Subsidiaries and Affiliates Address [address] [place] [address] Care Team Providers Care Edi Programmer Name Role Phone Lucius Sims MD Primary Care Provider + [phone] Riya Gill LPN Unavailable Unavailable Neil Simmons MD, Fannie Unavailable + [phone] Alexandria Dodson MD Primary Care Provider + [phone] Encounter Details Date Type Department Care Team (Late st Contact Info) Description 11/27/2022 Pharmacy Visit [facility] [address] [place] [address] [address]te [phone] Social History Tobacco Use [...] documented as of this encounter Care Teams Edi Programmer Relationship Specialty Start Date End Date Lucius Sims MD [address] [address] PCP - General Family Medicine 11/01/21 05/12/24 Alexandria Dodson MD [address] [place], [place] [address] PCP - General Family Medicine 05/13/24 Riya Gill LPN Inventory Technician 04/13/22 05/12/24 Fannie Trejo MD [address] [place] [address] [address] Consulting Physician Obstetrics and Gynecology 01/21/24 documented as of this encounter
--- OUTSIDE RECORDS SUMMARY | 2024-07-21 17:56 | XMS_ITS | Encounter Summary ---
Author Organization [employer] and Its Subsidiaries and Affiliates Address [address] [place] [address] Care Team Providers Care Strap Buckler Machine Name Role Phone Lucius Sims MD Primary Care Provider + [phone] Riya Gill LPN Unavailable Unavailable Neil Simmons MD, Fannie Unavailable + [phone] Alexandria Ddoson MD Primary Care Provider + [phone] Encounter Details Date Type Department Care Team (Late st Contact Info) Description 03/16/2022 Pharmacy Visit [facility] [address] [place] [address] [address] [id number] Social History Tobacco Use [...] Last Indicated Resolved Time Rule Out COVID-19 05/24/2022 05/24/2022 06/03/2022 8:58 PM TELECOMMUNICATION OPERATOR Rule Out COVID-19 01/05/2024 01/05/2024 01/05/2024 11:19 AM CDT documented as of this encounter Care Teams Strap Buckler Machine Relationship Specialty Start Date End Date Lucius Sims MD [address] [id number] PCP - General Family Medicine 11/01/21 05/12/24 Alexandria Dodson MD [address] [place] [address] PCP - General Family Medicine 05/13/24 Riya iGll LPN Construction Accountant 04/13/22 05/12/24 Fannie Trejo MD [address] [place] [address] Consulting Physician Obstetrics and Gynecology 01/21/24 documented as of this encounter
--- OUTSIDE RECORDS SUMMARY | 2024-07-21 17:56 | XMS_ITS | Encounter Summary ---
Author Organization [employer] and Its Subsidiaries and Affiliates Address [address] [place] [address] Care Team Providers Care Special Police Officer Name Role Phone Lucius Sims MD Primary Care Provider + [phone] Riya Gill LPN Unavailable Unavailable Neil Simmons MD, Fannie Unavailable + [phone] Alexandria Dodson MD Primary Care Provider + [phone] Encounter Details Date Type Department Care Team (Late st Contact Info) Description 04/20/2022 Pharmacy Visit [facility] [address] [place] [address] [address] [address] [id number] Social History Tobacco Use [...] Out COVID-19 05/24/2022 05/24/2022 06/03/2022 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
--- NOTE | 2024-07-21 18:04 | ED_ITS ---
HPI - URI/Sore Throat General Chief Complaint: Upper Respiratory Infection Stated Complaint: Congestion/Cough/Runny Nose/Vomiting Time Seen by Provider: 07/21/24 17:40 Source: patient Mode of arrival: ambulatory Limitations: no limitations History of Present Illness HPI Narrative: 19 yo F presents with c/o nasal congestion, sinus pressure and bilateral ear pain for 10 days. afebrile. Was seen at urgent care 8 days ago and told me symptoms were viral and to drink a herbal tea. All systems reviewed and negative except as noted above. Related Data Home Medications ?Medication ?Instructions ?Recorded ?Confirmed ?Last Taken ?Type dicyclomine 10 mg capsule mg 07/21/24 Unknown History erenumab-aooe 70 mg/mL mg subcut 07/21/24 Unknown History subcutaneous auto-injector (Aimovig Autoinjector) Allergies Allergy/AdvReac Type Severity Reaction Status Date / Time No Known Allergies Allergy Verified 07/21/24 17:33 Review of Systems Review of Systems: CONSTITUTIONAL: Denies fever, chills, or sweats. EYES: Denies visual changes, redness, or discharge. ENT: Reports rhinorrhea, congestion, sinus pressure, postnasal drainage. Denies sore throat. Reports bilateral ear pressure. CARDIOVASCULAR: Denies chest pain, palpitations, or edema. RESPIRATORY: Denies cough or dyspnea. GASTROINTESTINAL: Denies abdominal pain, nausea, vomiting, or diarrhea. GENITOURINARY: Denies dysuria or hematuria. SKIN: Denies rash or itching. MUSCULOSKELETAL: Denies back pain, joint pain, or myalgia. NEUROLOGIC: Denies headache, numbness, or weakness. PSYCHIATRIC: Denies anxiety or depression. All other systems reviewed are negative, except as documented in HPI. PMFSH Comments At time of signature, agree with nursing past medical, surgical, social and family history. There is no relevant family history pertinent to the presenting complaint. Exam Narrative: GENERAL: This is a well-nourished, well-developed patient, in no apparent distress. HEAD: normocephalic, atraumatic. EYES: PERRL. Sclera clear/white. Vision is grossly intact. EARS: External ears normal, auditory canals clear and without drainage, TMs normal without perforation. Hearing grossly intact. NOSE: External nose normal with Purulent nasal drainage, erythema to bilateral nares. Frontal and maxillary sinus tenderness on palpation bilaterally. THROAT: Mucous membranes moist, Mild erythema postnasal drainage. No Significant swelling or exudates. NECK: Neck supple, non-tender without lymphadenopathy, masses or thyromegaly. CARDIOVASCULAR: Regular rate and rhythm without murmurs, gallops, or rubs. RESPIRATORY: Clear to auscultation. Breath sounds equal bilaterally. No wheezes, rales, or rhonchi. SKIN: warm, Dry, intact with no suspicious lesions or rash, good texture and turgor. NEURO: awake, alert, and oriented to person, place and time. There were no obvious focal neurologic abnormalities. EXTREMITIES: No joint tenderness, effusion, or edema noted. Course Course Level of Care: Express Care Visit Vital Signs Vital signs: Vital Signs Temperature 36.4 C L 07/21/24 17:35 Pulse Rate 97 07/21/24 17:35 Respiratory Rate 16 07/21/24 17:35 Blood Pressure 108/70 07/21/24 17:35 Pulse Oximetry 100 07/21/24 17:35 Oxygen Delivery Room Air 07/21/24 17:35 Temperature 36.4 C L 07/21/24 17:35 Pulse Rate 97 07/21/24 17:35 Respiratory Rate 16 07/21/24 17:35 Blood Pressure 108/70 07/21/24 17:35 Pulse Oximetry 100 07/21/24 17:35 Oxygen Delivery Room Air 07/21/24 17:35 reviewed MDM - URI/Sore Throat MDM Narrative Medical decision making narrative: will treat patient with antibiotic for bacterial sinusitis due to duration of symptoms and exam findings. Patient is alert, nontoxic. Lungs clear to auscultation. Patient agrees with plan of care. Please be advised this is a medical document. It is intended for [id number] communication. It is written in medical language and may contain unfamiliar abbreviations or verbiage. Medical documents are intended to carry relevant information, facts as evident, and the clinical opinion of the practitioner at the time of the encounter. This report may have been done utilizing a voice recognition system. Attempts have been made to correct errors. However, there may be uncorrected grammatical, spelling, and recognition errors present. The file time of this note does not necessarily represent the time of service. Differential Diagnosis Differential diagnosis: Likely upper respiratory infection, otitis media, sinusitis, viral infection, influenza and pharyngitis Discharge Plan Discharge Clinical Impression: Acute bacterial sinusitis Patient Disposition: Home Condition: Stable Instructions: Antibiotic Form, Sinusitis (ED) Additional Instructions: take medications as prescribed. Drink at least 64 oz [address] a day. [address] cool mist humidifier in bedroom where you sleep. Follow-up with your doctor if symptoms are not improving. Patient Language: Slovenian Prescriptions: New metronidazole 500 mg tablet 500 mg PO BID 7 Days Qty: 14 0RF fluticasone propionate [Flonase Allergy Relief] 50 mcg/actuation spray,suspension 1 spray intranasal BID Qty: 16 0RF Rx Instructions: administer into each nostril amoxicillin-pot clavulanate 875-125 mg tablet 1 tablet PO Q12H 7 Days Qty: 14 0RF cetirizine 10 mg capsule 10 mg PO DAILY Qty: 30 0RF No Action dicyclomine 10 mg capsule Aimovig Autoinjector 70 mg/mL auto-injector SUBCUT Follow-up/Referrals: UNKNOWN,DOCTOR [Primary Care Provider] - Time of Disposition: 17:52
== END 2024-07-21 17:58 | disposition home or self-care (01) ==
PROVIDERS: Emergency Provider Nurse Practitioner Family
DX: J01.90 Acute sinusitis, unspecified (principal); M32.9 Systemic lupus erythematosus, unspecified
CPT/HCPCS: 99203; G0463